=== PATIENT | male | born 1950 | race American Indian/Alaskan Native ===

== ENCOUNTER 2020-06-14 08:12 | Day surgery (SDC) | payer MEDICARE ==
[~2020-06-14 08:12] MED LIST: LACTATED RINGERS 1,000 ML IV SCH; MIDAZOLAM 2 MG/2 ML INJ IV NR
--- NOTE | 2020-06-14 10:18 | Anesthesia Consultation ---
Anesthesia Consult and Med Hx Date of service: 06/14/20 - Airway Anesthetic Teeth Evaluation: Poor ROM Head & Neck: Adequate Mental/Hyoid Distance: Adequate Mallampati Class: Class III Intubation Access Assessment: Possibly Difficult - Pulmonary Exam CTA: Yes - Cardiac Exam Cardiac Exam: RRR - Pre-Operative Health Status ASA Pre-Surgery Classification: ASA3 Proposed Anesthetic Plan: General - Pulmonary Hx Smoking: Yes (1ppd, 30pk yr hx) Hx Respiratory Symptoms: No COPD: Yes (inhalers prn; no recent exaerbation) Home Oxygen Therapy: No - Cardiovascular System Hx Hypertension: Yes Hx Coronary Artery Disease: Yes Hx Heart Attack/AMI: Yes (10/2019) Hx Angina: No Hx Percutaneous Transluminal Coronary Angioplasty (PTCA): Yes (stent x1 10/2019) Hx Cardia Arrhythmia: No Hx Pacemaker: No Hx Internal Defibrillator: No - Central Nervous System CVA: No - Gastrointestinal Hx Gastroesophageal Reflux Disease: No - Endocrine Hx Renal Disease: No Hx Liver Disease: No Hx Non-Insulin Dependent Diabetes: Yes Hx Thyroid Disease: No - Other Systems Hx Obesity: No - Additional Comments Anesthesia Medical History Comments: No hx anesthetic complications. Patient reports that he last saw his quality assurance monitor body 1 month ago. No changes or concerns at that time. 4mets functional capacity, no signs/symptoms HF decompensation today. Takes ASA and brilinta; last dose 06/13/20.
[2020-06-14] MEDS ORDERED: fentaNYL 100 MCG/2 ML INJ IV PRN (10:19)
--- NOTE | 2020-06-14 10:19 | Anesthesia Day of Surgery ---
Anesthesia Day of Surgery - Day of Surgery Patient Examined: Yes Patient H&P Reviewed: Yes Patient is NPO: Yes
[2020-06-14] MEDS ORDERED: HYDROmorphone 1 MG/1 ML INJ ONE (10:36)
[2020-06-14] MEDS ORDERED: propofoL 200 MG/20 ML VIAL IV ONE (10:36)
--- NOTE | 2020-06-14 10:37 | Short Stay Summary ---
Short Stay Documentation Date of service: 06/14/20 Narrative H&P: 69 yr old male with left flank pain went to [facility]---[id number] left distal stone with with worse pain & nausea - History Past Medical History: CAD, diabetes, other (spine surgery (Dr. Kennedy)) Past Surgical History: PTCA Social history: - Allergies and Medications Current Medications: Allergies No Known Allergies Allergy (Unverified 06/14/20 09:05) Active Medications Fentanyl (Sublimaze) 50 mcg IV Q5MIN PRN PRN Reason: Pain , Severe (7-10) Lactated Ringer's (Lactated Ringers) 1,000 mls @ 100 mls/hr IV DIRECT THALIA Stop: 06/14/20 23:59 Midazolam HCl (Versed) 2 mg IV PREOP NR Stop: 06/14/20 15:00 - Physical exam General appearance: no acute distress, well-nourished Integumentary: no rash, no growths HEENT: Atraumatic, PERRLA Lungs: Clear to auscultation Heart: Regular rate Gastrointestinal: normal Rectal Exam: normal exam-external/orifice Extremities: no ischemia, No edema Neurological: Normal gait - Brief post op/procedure progress note Date of procedure: 06/14/20 Pre-op diagnosis: left distal stone 7mm Post-op diagnosis: same Procedure: cysto, left ureteroscopy laser basket stone, stent with external strging 6x 26 Anesthesia: GETA Surgeon: FELICITY BRANDON Estimated blood loss: minimal Condition: stable - Hospital course Hospital course: logan joseph, post op info on chart - Disposition Condition at discharge: Stable Disposition: DC-01 TO HOME OR SELFCARE Short Stay Discharge Plan Follow up with: KOREY LUCERO [Other] - 7 Days
[2020-06-14] MEDS ORDERED: LIDOCAINE MPF (2%) 20 MG/1 ML VIAL 5 ML ONE (10:38)
[2020-06-14] MEDS ORDERED: ceFAZolin/STERILE WATER 2 GM/20 ML SYRINGE IV NR (11:00)
[2020-06-14] MEDS ORDERED: PHENYLEPHRINE/NS 1,000 MCG/10 ML SYRINGE (OR USE) IV ONE (11:10)
[2020-06-14] MEDS ORDERED: WATER FOR IRRIG STERILE 2000 ML IR ONE (12:00)
[2020-06-14] MEDS ORDERED: ONDANSETRON 4 MG/2 ML INJ ONE (12:01)
[2020-06-14] MEDS ORDERED: HYDROcodone/ACETAMINOPHEN 5-325 MG TAB PO PRN (13:07)
--- NOTE | 2020-06-14 13:17 | Operative Report ---
PREOPERATIVE DIAGNOSIS: Left distal ureteral stone. POSTOPERATIVE DIAGNOSIS: Left distal ureteral stone. PROCEDURES: Cystoscopy, bilateral retrograde pyelograms, left ureteroscopy, laser lithotripsy, basket stone extraction, double-J stent (6-Hungarian 26 cm with an external string). SURGEON: Mir Amanda MD ANESTHESIA: General. ESTIMATED BLOOD LOSS: Minimal. FLUIDS: Crystalloid. COMPLICATIONS: No complications. INDICATIONS: This 69-year-old gentleman known to our service for years with diagnosis of diabetes, erectile dysfunction, presented to [facility], not feeling well. CT abdomen and pelvis revealed a 7 mm distal stone. He presents now for intervention. He had a recent heart attack and stent earlier this year by Dr. Waters and he is on a blood thinner. DESCRIPTION OF PROCEDURE: The patient was taken to the operative suite, placed in a supine position. After adequate general anesthesia, placed in a dorsal lithotomy position, prepped and draped in a sterile fashion. Pancystourethroscopy was performed with 22-Hungarian Storz cystoscope, no urethral abnormalities. His prostate displayed bilobar moderate obstruction. Bladder, no tumors or stones were noted. Bilateral retrograde pyelograms were obtained with an 8-Hungarian Matthew catheter and 8 mL of contrast. No filling defects or obstruction on the right, obvious stone could be appreciated, 7 mm distal ureter. Two 0.035 Glidewires were placed. Rigid ureteroscopy was performed. A yellow stone could be appreciated. Using a 200 micron fiber, starting at 4 claros and going up to 12, laser lithotripsy was performed. Fragments were extracted with a Liv basket and I will send them off for analysis. A 6-Hungarian 26 cm double-J stent with an external string was left indwelling. It was confirmed adequate position under fluoroscopic guidance. Bladder was drained. Rectal exam was benign. He was extubated and taken to recovery room in stable condition. He will go home on [employer] and Mr. Number. JOB# [id number] [facility]
--- NOTE | 2020-06-14 13:35 | Post Anesthesia Evaluation ---
- Post Anesthesia Evaluation Patient Participated: Yes Airway Patent: Yes Stable Respiratory Function: Yes Nausea/Vomiting: No Temp > 96.8F: Yes Pain Manageable: Yes Adequeate Hydration: Yes Anesthesia Complications: No
[2020-06-14 13:39] VITALS: BP 129/68
--- NOTE | 2020-06-14 14:37 | Fluoroscopy Report ---
Fluoroscopically guided retrograde ureterogram bilateral INDICATION: Pelvic pain. Left flank pain IMPRESSION: Bilateral retrograde pyeloureterograms demonstrate large filling defect within the distal left ureter consistent with distal left ureteral calculus. Subsequent postprocedure ureterogram demo nstrates significant improvement of the previously seen large distal left ureteral filling defect. A left double-J ureteral stent was placed into the left ureter and grossly unremarkable position. Fluoroscopy time: 20 seconds. Fluoroscopic images: 8. Signer Name: Sylvain Tafoya MD Signed: 06/14/2020 2:33 PM Workstation Name: [id number]
== END 2020-06-14 15:05 | disposition home or self-care (01) ==
LOC: OR 08:12 → EDSTATUS 10:45 → OR 15:05
PROVIDERS: ATTEND Urology
DX: N20.1 Calculus of ureter (principal); F17.210 Nicotine dependence, cigarettes, uncomplicated; I25.10 Atherosclerotic heart disease of native coronary artery without angina pectoris; J44.9 Chronic obstructive pulmonary disease, unspecified; E11.9 Type 2 diabetes mellitus without complications; Z79.82 Long term (current) use of aspirin; Z95.5 Presence of coronary angioplasty implant and graft; Z79.899 Other long term (current) drug therapy; Z98.890 Other specified postprocedural states
CPT/HCPCS: 52356; 74420; 82962; A4217; C1758; C1769; C2617; J0690; J1170; J2250; J2370; J2405; J2704; J3010; J7120; Q9967